=== PATIENT | male | born 1980 | race Caucasian/White ===

== ENCOUNTER 2018-12-07 05:26 | Emergency (ER) | payer OTHER ==
[~2018-12-07] VITALS: Ht 188 cm; Wt 83.5 kg
[2018-12-07] MEDS ORDERED: PRINIVIL10 MG PO (05:33)
[2018-12-07] MEDS ORDERED: QUETIAPINE FUM150 MG PO (05:34)
[2018-12-07 05:47] LABS: URINE BLOOD 3+ (Negative); URINE CLARITY SL CLOUDY; URINE GLUCOSE-RANDOM NEGATIVE (Negative); URINE KETONES NEGATIVE (Negative); URINE LEUKOCYTES-REFLEX 1+ (Negative); URINE PROTEIN 3+ (Negative)
[2018-12-07 05:49] LABS: ICTOTEST (BILI CONFIRMATORY) Negative (Negative); URINE BILIRUBIN 2+ (Negative); URINE COLOR BROWN; URINE NITRITE-REFLEX POSITIVE (Negative)
[2018-12-07 05:55] LABS: ABSOLUTE BASOPHILS 0.1 thou/uL (0.0-0.2); ABSOLUTE LYMPHOCYTES 1.2 thou/uL (0.8-5.3); ABSOLUTE MONOCYTES 1.1 thou/uL (0.0-1.2); ABSOLUTE NEUTROPHILS 13.3 thou/uL (1.6-8.1); BASOPHILS 0.3 %; EOSINOPHILS 0.2 %; HEMATOCRIT 45.1 % (42.0-52.0); HEMOGLOBIN 15.7 gm/dL (14.0-18.0); LYMPHOCYTES 7.9 %; MCH 33.7 pg (26.0-34.0); MCHC 34.9 g/dL (28.0-37.0); MCV 96.8 fL (80.0-100.0); MPV 8.5 fl. (7.2-11.1); NUCLEATED RBCS 0 /100WBC; PLATELET COUNT* 200 thou/uL (150-400); POLYS 84.6 %; RBC 4.66 mil/uL (4.50-6.00); RDW-CV 14.2 % (10.5-14.5); WBC 15.7 thou/uL (4.0-11.0)
[2018-12-07 05:56] LABS: BACTERIA-REFLEX 1-9 Few /HPF (None Seen); CASTS None Seen /LPF (None Seen); CRYSTALS None Seen /LPF (None Seen); MUCUS 0-3 Light strn/LPF (None Seen); SQUAMOUS 0-3 Few /LPF (0-3); URINE WBC-REFLEX 6-15 Few /HPF (0-5)
[2018-12-07 06:03] LABS: CREATININE 1.2 mg/dL (0.6-1.3); POTASSIUM 3.9 mmol/L (3.5-5.1)
[2018-12-07 06:13] LABS: ALBUMIN 3.9 g/dL (3.4-5.0); TOTAL BILIRUBIN 1.2 mg/dL (<0.1-1.0); TOTAL PROTEIN 7.3 g/dL (6.4-8.2)
[2018-12-07] MEDS ORDERED: KEFLEX500 M1 PO (07:38)
[2018-12-07] MEDS ORDERED: NORCO 5-325 TA1 EAC1 PO (07:38)
[2018-12-07] MEDS ORDERED: ZOFRAN ODT4 MG DISSOLVE (07:38)
[2018-12-07 08:09] VITALS: BP 113/77
== END 2018-12-07 08:10 | disposition home or self-care (01) ==
LOC: M.ERS 05:26
PROVIDERS: Personal Emergency Response Attendant
DX: N12 Tubulo-interstitial nephritis, not specified as acute or chronic (principal); N39.0 Urinary tract infection, site not specified; I10 Essential (primary) hypertension; F17.200 Nicotine dependence, unspecified, uncomplicated